=== PATIENT | female | born 1980 | race Caucasian/White ===

== ENCOUNTER 2019-08-04 13:00 | Outpatient (RCR) | payer MEDICARE, MEDICAID ==
[2013-03-05 19:55] VITALS: BP 110/62
[~2019-08-04 13:00] MED LIST: ALBUTEROL0.09 MG/A4 IH; AMOXICILLIN 8751 TAB PO; CEPHALEXIN500 M1 PO; LEVOFLOXACIN500 MG PO; MOTRIN800 MG PO; MUCINEX D1 TER PO; NORCO 325 MG-51 TA1 PO; PAXIL PO; PHENERGAN W/CO120 M1 PO; PREDNISONE20 MG PO; XANAX0.5 MG PO
== END 2019-10-04 | disposition still patient (30) ==
LOC: PT
DX: M72.2 Plantar fascial fibromatosis (principal); E66.01 Morbid (severe) obesity due to excess calories; M54.5 Low back pain; Z68.43 Body mass index [BMI] 50.0-59.9, adult

== ENCOUNTER → 2020-10-02 | Outpatient (CLI) | payer MEDICARE, MEDICAID ==
[2013-03-05 19:55] VITALS: BP 110/62
== END ==
LOC: RAD 08:19
DX: K76.0 Fatty (change of) liver, not elsewhere classified (principal)

== ENCOUNTER → 2020-10-02 | Outpatient (CLI) | payer MEDICARE, MEDICAID ==
[2013-03-05 19:55] VITALS: BP 110/62
== END ==
LOC: MAMMO 08:21
DX: Z12.31 Encounter for screening mammogram for malignant neoplasm of breast (principal)

== ENCOUNTER → 2023-04-15 | Outpatient (CLI) | payer MEDICARE, MEDICAID ==
[~2023-04-15] MED LIST changes: +ANXIETY MED; +GLUCOPHAGE; +WELLBUTRIN
== END ==
LOC: RAD 14:12
DX: N92.0 Excessive and frequent menstruation with regular cycle (principal)